=== PATIENT | male | born 1960 | race Caucasian/White ===

== ENCOUNTER → 2025-01-18 09:33 | Outpatient (REF) | payer MEDICARE, MEDICAID, SELFPAY ==
--- OUTSIDE RECORDS SUMMARY | 2025-01-26 09:41 | XMS_ITS | Clinical Summary ---
Author Organization [facility] Address [address] [place] [address] Phone Care Team Providers Care Trim Mounter Name Role Phone Eric Shearer MD Primary Care Provider Allergies Active Allergy Reactions Criticality Noted Date Comments Codeine Itching 01/11/2019 Medications metoprolol Succinate (TOPROL-XL) 25 MG TABLET SR 24 HR 1 tablet daily 5 9 Active SYMBICORT 160-4.5 MCG/ACT Aerosol INL 2 PFS PO BID 2 9 Active atorvastatin (LIPITOR) 20 MG Tablet TK 1 T PO D 5 9 Active Aspirin 81 MG Tablet Take 81 mg by mouth daily. Active HYDROcodone-tad taminophen (NORCO) 5-325 MG Tablet Take 1-2 Tabs by mouth every 4 hours as needed for Moderate or more severe pain. 15 Tab 9 Active Additional Information Patient not taking.Reported on 05/10/2019 CHANTIX 1 MG Tablet TK 1 T PO TWICE DAILY. STOP SMOKING 0 9 Active Active Problems Problem Noted Date Diagnosed Date Epididymal cyst 04/21/2019 Family History Medical History Relation Name Comments Heart Disease Father Heart Disease Mother Relation Name Status Comments Father Mother Social History Tobacco Use Types Packs/Day Years Used Date Smoking Tobacco: Every Day Cigarettes 0.5 44 Smokeless Tobacco: Never Tobacco Cessation:Ready to Q uit: Yes Alcohol Use Standard Drinks/Week Comments Yes 0 (1 standard drink = 0.6 oz pur e alcohol) occasionally Sexually Active Control Partners Comments Not Currently Sex and Gender Information Value Date Recorded Sex Assigned at Not on file Legal Sex Male 10:43 PM CDT Gender Identity Not on file Sexual Orientation Not on file Last Filed Vital Signs Vital Sign Reading Time Taken Comments Blood Pressure 122/78 05/10/2019 9:31 AM CDT Pulse 76 05/10/2019 9:31 AM CDT Temperature 35.9 C (96.7 F) 05/10/2019 9:31 AM CDT Respiratory Rate 18 05/10/2019 9:31 AM CDT Oxygen Saturation 96% 05/10/2019 9:31 AM CDT Inhaled Oxygen Concentration - - Weight 81.6 kg (180 lb) 05/10/2019 9:31 AM CDT Height 182.9 cm (6') 05/10/2019 9:31 AM CDT Body Mass Index 24.41 05/10/2019 9:31 AM CDT Plan of Treatment Health Maintenance Due Date Last Done Comments Hepatitis C Virus (HCV) Screening 1960 TdaP Immunization 1960 Cologuard 2010 Immunochemical Fecal Occult Blood 2010 Pneumococcal Immunization (5 0+ years) (1 of 1 - PCV) 2010 Zoster Immunization (1 of 2) 2010 Influenza Immunization (#1) 2024 SARS-COV-2 Immunization ( - season) 2024 Colonoscopy 06/19/2032 06/19/2022, 10/18/2018 Colorectal Cancer Screening 06/19/2032 Respiratory Syncytial Virus (RSV) Immunization (Adult) (1 - 1-dose 75+ series) 2035 06/19/2022, 10/18/2018 Hepatitis B Immunization Aged Out No longer eligible based on patient's age to complete this topic Meningococcal Immunization (ACWY) Aged Out No longer eligible b ased on patient's age to complete this topic Rotavirus Immunization Aged Out No lo nger eligible based on patient's age to complete this topic Insurance MEDICAID [employer] [facility] MEDICARE Care Teams Trim Mounter Relationship Specialty Start Date End Date Eric Shearer MD [address] [place] [address] PCP - General Internal Medicine 07/29/22
--- OUTSIDE RECORDS SUMMARY | 2025-01-26 09:42 | XMS_ITS | Patient Health Record ---
Author Organization [facility] Address [address] [place] [address] Care Team Providers Care Stadium Attendant Name Role Phone Severo Michaud Primary Care Provider Allergies Allergen (clinical drug ingredient) Drug/Non Drug Allergy documented on EMR Reaction Allergy Type Onset Date Status codeine Codeine itching Drug Allergy Active Reason For Referral No Information Medications Medication SIG (Take, Route, Frequency, Duration) Notes Start Date End Date Status hydrOXYzine HCl 50 MG 1 tablet at bedtim e as needed Orally Once a day for 30 days 12/18/2022 Active Albuterol Sulfate HFA 108 (90 Base) MCG/ACT 1 puff as needed Inhalation every 4 hrs Active Plavix 75 MG 1 tablet Orally Once a day for 30 day(s) Active Metoprolol Tartrate 50 MG 1 tablet with food Orally once a day Active Symbicort 80-4.5 MCG/ACT 2 puffs Inhalat ion Once a day Active cloNIDine HCl 0.1 MG 1 tablet Orally twi ce a day 10/08/2022 Active Ondansetron HCl 8 MG 1 tablet as needed Orally three times daily 10/08/2022 Not-Taking Aspirin 81 81 MG 1 tablet Orally Once a day Active Buprenorphine HCl-Naloxone HCl 8-2 MG 1 film under the tongue and allow to dissolve Sublingual twice a day 03/17/2023 Active Atorvastatin Calcium 40 MG 1 tablet Oral ly Once a day Active Social History Tobacco Use: Social History Observation Description Date Details (start date - stop date) Current Smoker NA - NA Sex Assigned At : Social History Observation Description Sex Assigned At Male Dont use, Tobacco Use/Smoking Question Answer Notes Are you a current every day smoker Additional Findings: Tobacco User Heavy cigarett e smoker (20-39 cigs/day) Problems Problem Type SNOMED Code ICD Code Onset Dates Problem Status W/U Status Risk Notes Problem Tobacco user (984486813) Nicotine dependence, unspecified, uncomplicated (F17.200) Active confirmed Problem Chemical dependency (F19.20) Active confirmed Problem 434932765 Insomnia, unspecified type (G47.00) Active confirmed Problem Opioid use disorder (9859882329) Opioid use disorder (F11.99) Active confirmed Plan Of Treatment No Information Insurance Providers Payer Name Payer Address Payer Phone Subscriber Number Group Number Insured Name Patient Relationship to Insured Coverage Start Date Coverage End Date [employer] Medicare Assure [address] [address] [place] [address] [id number] Mike Chato Self - patient is the insured 3 MEDICARE PART A [address] [place] [phone] [id number] Mike Chato Self - patient is the insured 3 Medical (General) History Medical History History ICD Code HTN HLD COPD OUD Surgical History Surgery Date(Month/Year) knee repair x 3 hernia repair shoulder Hospitalization History Reason Date(Month/Year)
== END ==
LOC: ANHLAB 09:33
PROVIDERS: PCP Family Medicine; Visit Provider Plastic Surgery
DX: D48.9 Neoplasm of uncertain behavior, unspecified (principal)
CPT/HCPCS: 88305